=== PATIENT | male | born 1955 | race Caucasian/White ===

== ENCOUNTER → 2016-06-17 | Outpatient (CLI) | payer SELFPAY | END | disposition disaster alternative care site (69) | LOC: GRAD 09:47 | DX: M54.2 Cervicalgia (principal); M47.812 Spondylosis without myelopathy or radiculopathy, cervical region; R20.2 Paresthesia of skin; R20.0 Anesthesia of skin ==

== ENCOUNTER 2016-07-10 15:40 | Emergency (ER) | payer SELFPAY | END 2016-07-10 15:45 | disposition disaster alternative care site (69) | LOC: GMED 15:40 | DX: Z53.21 Procedure and treatment not carried out due to patient leaving prior to being seen by health care provider (principal) ==